=== PATIENT | male | born 1985 | race Caucasian/White ===

== ENCOUNTER → 2017-12-07 | Outpatient (CLI) | payer OTHER ==
[~2017-12-07] MED LIST: ADDERALL XR 2525 MG PO; CLEOCIN300 MG PO; NALTREXONE HCL50 MG PO; OXANDROLONE10 MG PO; PAXIL20 MG PO; PRILOSEC10 MG PO; SUBOXONE 12 MG1 EACH SL; ZOFRAN4 MG PO; [UNRECOGNIZED DRUG - OTHER]; [UNRECOGNIZED DRUG - OTHER]; [UNRECOGNIZED DRUG - REMARK]
== END | disposition home or self-care (01) ==
LOC: CDC 10:58
DX: S62.327A Displaced fracture of shaft of fifth metacarpal bone, left hand, initial encounter for closed fracture (principal); M79.642 Pain in left hand
CPT/HCPCS: 93000

== ENCOUNTER 2017-12-08 12:07 | Day surgery (SDC) | payer OTHER ==
[~2017-12-08] VITALS: Ht 180.3 cm; Wt 90.7 kg
[2017-12-08 12:42] VITALS: BP 113/77
[2017-12-08 13:12] LABS: ALBUMIN 4.3 G/DL (3.2-4.8); ALKALINE PHOSPHATASE 54 IU/L (3-129); ALT (GPT) 25 IU/L (3-49); AST (GOT) 20 IU/L (2-34); CHLORIDE 97 MEQ/L (99-109); CREATININE 0.9 MG/DL (0.6-1.3); GFR ESTIMATE (CALCULATED) > 59 mL/min/ (58.99-99999); GLUCOSE 77 mg/dL (70-99); POTASSIUM 3.9 MEQ/L (3.7-5.4); SODIUM 137 MEQ/L (136-147); TOTAL BILIRUBIN 0.7 MG/DL (0.0-1.0); TOTAL PROTEIN 6.7 G/DL (6.4-8.3); UREA NITROGEN (BUN) 8 mg/dL (9-23)
[2017-12-08 15:12] LABS: APPEARANCE CLEAR ((CLEAR)); BILIRUBIN NEGATIVE; BLOOD NEGATIVE; COLOR YELLOW ((YELLOW)); GLUCOSE (STRIP) NEGATIVE; KETONES NEGATIVE; LEUKOCYTES NEGATIVE; NITRITE NEGATIVE; PROTEIN (STRIP) NEGATIVE; UROBILINOGEN 0.2 MG/DL (0.2-1.0)
[2017-12-08 15:55] LABS: BENZODIAZEPINES, URINE SCREEN Negative (200 ng/mL)
== END 2017-12-08 16:23 | disposition home or self-care (01) ==
LOC: SDC 12:07
PROVIDERS: Orthopaedic Surgery Sports Medicine
PROC: [UNRECOGNIZED PROCEDURE] (principal; 2017-12-08)
DX: S62.327A Displaced fracture of shaft of fifth metacarpal bone, left hand, initial encounter for closed fracture (principal); Z53.09 Procedure and treatment not carried out because of other contraindication; F11.10 Opioid abuse, uncomplicated; F12.10 Cannabis abuse, uncomplicated
CPT/HCPCS: 80053; 80306 90; 81003; 87641; J0690; J3370; S0020

== ENCOUNTER 2017-12-22 11:58 | Day surgery (SDC) | payer OTHER ==
[~2017-12-22] VITALS: Ht 180.3 cm; Wt 90.7 kg
[2017-12-22 12:37] VITALS: BP 140/94
[2017-12-22 12:56] LABS: BENZODIAZEPINES, URINE SCREEN Negative (200 ng/mL)
[2017-12-22 17:30] VITALS: BP 125/76
[2017-12-22 18:20] VITALS: BP 126/80
== END 2017-12-22 18:28 | disposition home or self-care (01) ==
LOC: SDC 11:58
PROVIDERS: Orthopaedic Surgery Sports Medicine
PROC: 0PSQ04Z Reposition Left Metacarpal with Internal Fixation Device, Open Approach (ICD-10-PCS; principal; 2017-12-22)
DX: S62.327A Displaced fracture of shaft of fifth metacarpal bone, left hand, initial encounter for closed fracture (principal); W22.01XA Walked into wall, initial encounter; Y92.009 Unspecified place in unspecified non-institutional (private) residence as the place of occurrence of the external cause; F17.200 Nicotine dependence, unspecified, uncomplicated; F11.90 Opioid use, unspecified, uncomplicated; F14.90 Cocaine use, unspecified, uncomplicated; F12.90 Cannabis use, unspecified, uncomplicated
CPT/HCPCS: 73140; 76000; 80306 90; J0131; J0330; J1100; J1170; J1885; J2250; J2405; J3010; J3370; S0020

== ENCOUNTER 2018-03-24 16:42 | Emergency (ER) | payer OTHER ==
[~2018-03-24] VITALS: Ht 180.3 cm; Wt 85.2 kg
[2018-03-24 18:01] LABS: HEMOGLOBIN 12.7 G/DL (12.5-16.6); MCH 30.5 PG (29.0-34.0); MCHC 34.3 G/DL (30.0-36.0); MCV 88.7 FL (86-99); PLATELET COUNT 191 K/uL (156-360); RBC DIS.WIDTH-CV 12.4 % (11.8-14.6); RBC DIS.WIDTH-SD 40.4 % (39-53); RED BLOOD COUNT 4.17 M/uL (4.00-5.50); WHITE BLOOD COUNT 6.4 K/uL (4.1-10.2)
[2018-03-24 18:13] LABS: ERTH.SED.RATE 26 MM/HR (0-15)
[2018-03-24] MEDS ORDERED: BACTRIM,SEPT1 TABLET PO (18:58)
[2018-03-24 21:18] VITALS: BP 138/74
== END 2018-03-24 21:19 | disposition home or self-care (01) ==
LOC: EME 16:42
PROVIDERS: Physician Assistant
DX: L03.114 Cellulitis of left upper limb (principal); M79.642 Pain in left hand; M79.89 Other specified soft tissue disorders; F17.200 Nicotine dependence, unspecified, uncomplicated
CPT/HCPCS: 73130; 85027; 85651; 86140; 99281; 99284; J3370